=== PATIENT | female | born 1995 | race American Indian/Alaskan Native ===

== ENCOUNTER 2017-09-02 00:21 | Emergency (ER) | payer MEDICAID ==
[2017-09-02 00:22] VITALS: BMI 31.3
--- NOTE | 2017-09-02 01:25 | ED PDOC ---
Arrival/HPI - General Chief Complaint: Abdominal Pain Time Seen by Provider: 09/02/17 00:42 Historian: Patient - History of Present Illness Narrative History of Present Illness (Text): 09/02/17 01:10 22 year old female, with no significant past medical history, presents to the Emergency department complaining of right lower quadrant abdominal discomfort since few days. Patient states worsening symptoms with walking prompting her to present to the Emergency department for medical evaluation. Patient denies any trauma, vaginal discharge, urinary output changes, changes in bowel movement, fever, chills, nausea, vomiting, diarrhea, abdominal pain, chest pain, shortness of breath or any other complaints. Time/Duration: < week Symptom Onset: Gradual Symptom Course: Unchanged Quality: Aching Activities at Onset: Light Context: Home Past Medical History - Provider Review Nursing Documentation Reviewed: Yes - Past History Past History: No Previous - Infectious Disease Hx of Infectious Diseases: None - Tetanus Immunization Tetanus Immunization: Unknown - Psychiatric Hx Depression: No Hx Emotional Abuse: No Hx Physical Abuse: No Hx Substance Use: No - Past Surgical History Past Surgical History: No Previous - Suicidal Assessment Feels Threatened In Home Enviroment: No Family/Social History - Physician Review Nursing Documentation Reviewed: Yes Family/Social History: No Known Family HX Smoking Status: Never Smoked Hx Alcohol Use: Yes Hx Substance Use: No Allergies/Home Meds Allergies/Adverse Reactions: Allergies No Known Allergies Allergy (Verified 09/02/17 04:00) Home Medications: Home Meds Medication Instructions Recorded Confirmed No Known Home Med [No Known Home 04/17/13 09/02/17 Med] Review of Systems - Physician Review All systems were reviewed & negative as marked: Yes - Review of Systems Constitutional: Normal. absent: Fevers Eyes: Normal ENT: Normal Respiratory: Normal. absent: SOB Cardiovascular: Normal. absent: Chest Pain Gastrointestinal: Abdominal Pain. absent: Diarrhea, Nausea, Vomiting Genitourinary Female: Normal. absent: Urine Output Changes, Vaginal Discharge Musculoskeletal: Normal Skin: Normal Neurological: Normal Endocrine: Normal Hemo/Lymphatic: Normal Psychiatric: Normal Physical Exam Vital Signs Reviewed: Yes Vital Signs Temp Pulse Resp BP Pulse Ox 09/02/17 05:23 97.6 F 64 18 123/79 100 09/02/17 03:41 97.6 F 66 18 118/72 100 09/02/17 00:37 98.1 F Temperature: Afebrile Blood Pressure: Normal Pulse: Regular Respiratory Rate: Normal Appearance: Positive for: Well-Appearing, Non-Toxic, Comfortable Pain Distress: None Mental Status: Positive for: Alert and Oriented X 3 - Systems Exam Head: Present: Atraumatic, Normocephalic Pupils: Present: PERRL Extroacular Muscles: Present: EOMI Conjunctiva: Present: Normal Mouth: Present: Moist Mucous Membranes Neck: Present: Normal Range of Motion Respiratory/Chest: Present: Clear to Auscultation, Good Air Exchange. No: Respiratory Distress, Accessory Muscle Use Cardiovascular: Present: Regular Rate and Rhythm, Normal S1, S2. No: Murmurs Abdomen: Present: Tenderness (tenderness to right lower quadrant.). No: Distention, Peritoneal Signs, Rebound, Guarding Back: Present: Normal Inspection Upper Extremity: Present: Normal Inspection. No: Cyanosis, Edema Lower Extremity: Present: Normal Inspection. No: Edema Neurological: Present: GCS=15, CN II-XII Intact, Speech Normal Skin: Present: Warm, Dry, Normal Color. No: Rashes Psychiatric: Present: Alert, Oriented x 3, Normal Insight, Normal Concentration Medical Decision Making ED Course and Treatment: 09/02/17 01:10 Impression: 22 year old female presents to the Emergency department for right lower quadrant abdominal pain. Plan: -- Labs -- Urinalysis -- Transvaginal US -- Reassess and disposition Prior Visits: Notes and results from previous visits were reviewed. Progress Notes: 09/02/17 05:20 Transvaginal US reviewed by radiologist, shows: No acute findings. Dominant follicle on the right. No mass or torsion. No evidence of intrauterine or extrauterine . - Lab Interpretations Lab Results: 09/02/17 01:37 09/02/17 01:37 Lab Results 09/02/17 01:37: Sodium 141, Potassium 3.8, Chloride 103, Carbon Dioxide 28, Anion Gap 13, BUN 12, Creatinine 0.8, Est GFR ( Amer) > 60, Est GFR (Non- Af Amer) > 60, Random Glucose 88, Calcium 8.9, Total Bilirubin 0.3, AST 20, ALT 20, Alkaline Phosphatase 69, Total Protein 7.1, Albumin 4.1, Globulin 3.0, Albumin/Globulin Ratio 1.4 09/02/17 01:37: WBC 5.9, RBC 3.82, Hgb 11.7 L, Hct 35.3 L, MCV 92.4, MCH 30.6, MCHC 33.1, RDW 13.4, Plt Count 167, MPV 10.2, Gran % 56.1, Lymph % (Auto) 34.3, [place] % (Auto) 7.6 H, Eos % (Auto) 1.5, Baso % (Auto) 0.5, Gran # 3.31, Lymph # ( Auto) 2.0, [place] # (Auto) 0.5, Eos # (Auto) 0.1, Baso # (Auto) 0.03 09/02/17 01:15: Urine Color Yellow, Urine Appearance Clear, Urine pH 6.0, Ur Specific [place] >= 1.030, Urine Protein Trace H, Urine Glucose (UA) Negative, Urine Ketones Negative, Urine Blood Negative, Urine Nitrate Negative, Urine Bilirubin Negative, Urine Urobilinogen 0.2, Ur Leukocyte Esterase Negative, Urine RBC 0 - 2, Urine WBC 1 - 3, Ur Epithelial Cells 3 - 4, Urine Bacteria Few - RAD Interpretation Radiology Orders: 09/02/17 01:10 TRANSVAGINAL [US] Stat Commercial Collector: Radiologist - Scribe Statement The provider has reviewed the documentation as recorded by the Scribe Jud Mcintosh. All medical record entries made by the Scribe were at my direction and personally dictated by me. I have reviewed the chart and agree that the record accurately reflects my personal performance of the history, physical exam, medical decision making, and the department course for this patient. I have also personally directed, reviewed, and agree with the discharge instructions and disposition. Disposition/Present on Arrival - Present on Arrival Any Indicators Present on Arrival: No History of DVT/PE: No History of Uncontrolled Diabetes: No Urinary Catheter: No History of Decub. Ulcer: No History Surgical Site Infection Following: None - Disposition Have Diagnosis and Disposition been Completed?: Yes Diagnosis: Ovarian cyst Disposition: HOME/ ROUTINE Disposition Time: 14:00 Condition: GOOD Discharge Instructions (ExitCare): Ovarian Cysts Forms: [employer] ([place]izen [place]), WORK NOTE
[2017-09-02 01:52] LABS: URINE BILIRUBIN NEGATIVE (NEGATIVE); URINE BLOOD NEGATIVE (NEGATIVE); URINE GLUCOSE (UA) NEGATIVE (NEGATIVE); URINE LEUKOCYTE ESTERASE NEGATIVE Leu/uL (NEGATIVE); URINE PROTEIN TRACE mg/dL (<30 mg/dL); URINE UROBILINOGEN 0.2 E.U./dL (<1 E.U./dL)
[2017-09-02 01:54] LABS: BASO # 0.03 K/mm3 (0.0-2.0); BASO % 0.5 % (0.0-3.0); EOS # 0.1 (0.0-0.7); EOS % 1.5 % (1.5-5.0); GRAN # 3.31 (1.4-6.5); GRAN % 56.1 % (50.0-68.0); HEMOGLOBIN 11.7 g/dL (12.0-16.0); LYMPH % 34.3 % (22.0-35.0); MEAN CELL VOLUME 92.4 fl (80.0-105.0); MEAN CORPUSCULAR HEMOGLOBIN 30.6 pg (25.0-35.0); MEAN CORPUSCULAR HGB CONC 33.1 g/dl (31.0-37.0); MEAN PLATELET VOLUME 10.2 fl (7.0-11.0); MONO # 0.5 (0.1-0.6); MONO % 7.6 % (1.0-6.0); RBC 3.82 10^6/uL (3.5-6.1); RED CELL DISTRIBUTION WIDTH 13.4 % (11.5-14.5); WHITE BLOOD COUNT 5.9 10^3/ul (4.5-11.0)
[2017-09-02 01:56] LABS: URINE APPEARANCE CLEAR (CLEAR); URINE COLOR YELLOW (YELLOW)
[2017-09-02 02:02] LABS: URINE RBC 0 - 2 /hpf (0-2)
[2017-09-02 02:03] LABS: URINE BACTERIA FEW (NEG)
[2017-09-02 02:05] LABS: ALB/GLOB RATIO 1.4 (1.1-1.8); ALBUMIN 4.1 g/dL (3.0-4.8); ALT/SGPT 20 U/L (7-56); AST/SGOT 20 U/L (14-36); BLOOD UREA NITROGEN 12 mg/dL (7-21); CALCIUM 8.9 mg/dL (8.4-10.5); GFR AFRICAN-AMERICAN > 60; GFR NON-AFRICAN AMERICAN > 60
[2017-09-02 03:42] VITALS: RESP 18; TEMP 97.6; O2SAT 100
[2017-09-02 05:24] VITALS: BP 123/79; PULSE 64
--- NOTE | 2017-09-02 09:25 | US ---
HISTORY: Right lower quadrant pain. Duration of symptoms: 2 months. LMP 2 days ago. COMPARISON: None available. TECHNIQUE: Transvaginal only. Real -time technique with 2D, duplex and color Doppler FINDINGS: UTERUS: Measures 3.1 x 4.4 x 7.6 cm. Normal in size and appearance. No fibroid or other mass lesion seen. ENDOMETRIUM: Measures 1.8 mm in diameter. No ultrasound findings to suggest gestational sac, fluid, debris, mass or polyp or other pathologic process within the endometrium. CERVIX: No cervical abnormality identified. RIGHT OVARY: Measures 2.1 x 3.4 x 4.3 cm. No solid mass. Normal flow. Simple cyst 0.9 x 1.7 x 1.8 cm. LEFT OVARY: Measures 1.9 x 3.1 x 2.8 cm. No solid mass. Normal flow. FREE FLUID: No significant free fluid noted. OTHER FINDINGS: None. IMPRESSION: No acute findings related to/accounting for the clinical presentation. Additional benign and/or incidental findings described above. Concordant results (preliminary interpretation) provided by [facility]. Procedure Completed: 03:08 Preliminary ([facility]) Report: Dictated and Authenticated: 05:12 Final Interpretation: 09:23 September 02, 2017.
== END 2017-09-02 05:55 | disposition home or self-care (01) ==
LOC: ED 00:21
DX: N83.291 Other ovarian cyst, right side (principal)